=== PATIENT | female | born 1960 | race Caucasian/White ===

== ENCOUNTER 2017-11-21 19:25 | Observation (INO) ==
[2017-11-21] MEDS ORDERED: NORMAL SALINE 1,000 ML IV PRN (19:51)
[2017-11-21] MEDS ORDERED: SENNOSIDES/DOCUSATE SODIUM 1 TAB TABLET PO PRN (19:54)
[2017-11-21] MEDS ORDERED: ALPRAZolam 0.25 MG TABLET PO PRN (19:54)
[2017-11-21] MEDS ORDERED: PRAMIPEXOLE DI-HCL 0.5 MG TABLET PO SCH (21:00)
[2017-11-21] MEDS ORDERED: PROMETHAZINE HCL/CODEINE 60 ML BTL PO PRN (22:31)
[2017-11-21] MEDS: NABUMETONE 500 MG TABLET PO SCH (22:33)
[2017-11-21] MEDS: ACETAMINOPHEN 325 MG TABLET PO PRN (22:34)
[2017-11-21] MEDS ORDERED: rOPINIRole HCL 1 MG TABLET ONE (23:10)
[2017-11-21] MEDS: DULoxetine HCL 30 MG CAPSULE.SA PO SCH (23:27)
[2017-11-21] MEDS: BENZOCAINE/MENTHOL 16 EACH BOX MM PRN (23:28)
[2017-11-21] MEDS: CODEINE PHOSPHATE/GUAIFENESIN 5 ML UDC PO PRN (23:42)
[2017-11-22] MEDS: BENZOCAINE/MENTHOL 16 EACH BOX MM PRN ×3 (05:05→09:02)
[2017-11-22] MEDS: CODEINE PHOSPHATE/GUAIFENESIN 5 ML UDC PO PRN (05:05)
[2017-11-22] MEDS: ACETAMINOPHEN 325 MG TABLET PO PRN ×2 (07:25→13:58)
[2017-11-22] MEDS ORDERED: LEVOTHYROXINE SODIUM 50 MCG TABLET PO SCH (09:00)
[2017-11-22] MEDS ORDERED: ESCITALOPRAM OXALATE 10 MG TAB PO SCH (09:00)
[2017-11-22] MEDS ORDERED: POTASSIUM CHLORIDE 10 MEQ TABLET.SA PO SCH (09:00)
[2017-11-22] MEDS ORDERED: HYDROCHLOROTHIAZIDE 25 MG TABLET PO SCH (09:00)
[2017-11-22] MEDS: DULoxetine HCL 30 MG CAPSULE.SA PO SCH (09:01)
[2017-11-22] MEDS: NABUMETONE 500 MG TABLET PO SCH (09:01)
--- NOTE | 2017-11-22 09:08 | HP ---
Chief Complaint - Chief Complaint Date of Service: 11/21/17 Time of Service: 17:15 Chief Complaint: Cough, body aches, fevers/chills, tailbone pain History of Present Illness: The patient presented to my clinic office today to be evaluated for a cough. She states he symptoms began suddenly on 11/18/2017. She denies any known sick contacts. She complains of progressively worsening dry cough, chills , sweats, body aches. She states she can sometimes feel something rattling in her chest. She also complains of decreased appetite and nausea with occasionally dry heaving. In the office she was checked for strep which was negative. She appeared dry on exam and was tachycardic so [facility] but she did not have any improvement following IVF hydration so she was admitted to observation for further evaluation and management. Medical History (Last Reviewed 11/21/17 @ 19:30 by Ev Horan RN) Abnormal Pap smear of cervix Onset Date: Unknown Anxiety Onset Date: ~01/06/17 Benign essential hypertension Onset Date: ~01/06/17 Chronic constipation Onset Date: ~01/06/17 Dependent edema Onset Date: ~01/06/17 Depression Onset Date: ~01/06/17 Family history of colon cancer Onset Date: ~01/06/17 Fibroid, uterine Onset Date: ~09/26/13 Fibromyalgia Onset Date: ~01/06/17 Hyperlipidemia Onset Date: ~01/06/17 Hypokalemia Onset Date: ~01/06/17 Insomnia Onset Date: ~01/06/17 Lower extremity edema Onset Date: ~01/06/17 Menopausal syndrome Onset Date: ~09/12/13 Obesity (BMI 30-39.9) Onset Date: ~01/06/17 Plantar fasciitis Onset Date: ~01/05/17 Postmenopausal bleeding Onset Date: ~09/26/13 RLS (restless legs syndrome) Onset Date: ~01/06/17 Stress incontinence Onset Date: ~05/26/17 Subclinical hypothyroidism Onset Date: ~01/06/17 Vitamin D deficiency Onset Date: ~05/26/17 Surgical History: Surgical History (Last Reviewed 11/21/17 @ 19:30 by Ev Horan RN) Colonoscopy planned Onset Date: ~2013 H/O elbow surgery Onset Date: ~06/2015 H/O wisdom tooth extraction Onset Date: Unknown Family History: Family History (Last Reviewed 11/21/17 @ 19:30 by Ev Horan RN) Brother Cancer Father Cancer Grandmother Cancer Mother Diabetes Hypertension Arthritis Sister Cancer Social History: Patient Lives/Resources With Spouse Utilized Occupation works at a [employer] Preferred Language Amharic Do you have any denominational or Yes: Yazdanism cultural preference? Smoking Status Never smoker Have you smoked in the past 12 No months Review Of Systems (GEN) - Review of Systems Generalized/Overall Review: Present: Weakness, Chills, Fever, Diaphoresis, Fatigue EENTM: Present: No Symptoms Reported Respiratory: Present: Cough, Shortness of Breath, Wheezing Cardiac: Present: Chest Pain Abdominal: Present: Nausea. Absent: Diarrhea, Melena, Bright blood from rectum Genitourinary: Absent: No Symptoms Reported, Burning, Urgency, Frequency, Hesitancy Musculoskeletal: Present: Joint Pain, Back Pain, Muscle Pain Neurological: Present: Headache, Anxiety Skin: Present: No Symptoms Reported Endocrine: Present: No Symptoms Reported Misc: All systems neg except as marked Allergies/Adverse Reactions: Allergies Allergy/AdvReac Type Severity Reaction Status Date / Time acetaminophen [From Percocet] Allergy Verified 11/21/17 19:31 oxycodone [From Percocet] Allergy Other Verified 11/21/17 19:31 sulindac Allergy RASH Verified 11/21/17 19:31 Home Medications: HOME MEDICATIONS Alprazolam [Xanax] 0.25 mg PO TID PRN 11/21/17 [Last Taken Unknown] Cholecalciferol (Vitamin D3) [Vitamin D3] 5,000 unit PO QAM 11/21/17 [Last Taken 11/20/17 08:00] Duloxetine HCl [Cymbalta] 30 mg PO BID 11/21/17 [Last Taken 11/20/17 21:00] Escitalopram Oxalate [Lexapro] 20 mg PO QAM 11/21/17 [Last Taken 11/20/17 08:00] Hydrochlorothiazide 50 mg PO QAM 11/21/17 [Last Taken 11/20/17 08:00] Levothyroxine Sodium [Synthroid] 50 mcg PO QAM 11/21/17 [Last Taken 11/20/17 08: 00] Magnesium 250 mg PO BID 11/21/17 [Last Taken 11/20/17 21:00] Mv-Mn/Folic Acid/Calcium/Vit K [Women's 50 Plus Daily Formula] 2 tab PO QAM [Last Taken 11/20/17 08:00] Nabumetone [Relafen] 500 mg PO BID 11/21/17 [Last Taken 11/20/17 21:00 500 mg] Potassium Chloride [Klor-Con Sprinkle] 10 meq PO QAM 11/21/17 [Last Taken 08:00 10 mEQ] Pramipexole Di-HCl [Pramipexole Dihydrochloride] 1 mg PO HS 11/21/17 [Last Taken 11/20/17 21:00 1mg] Rosuvastatin Calcium [Crestor] 10 mg PO HS 11/21/17 [Last Taken 11/20/17 21:00 10 mg] Sennosides/Docusate Sodium [Senokot-S] 2 tab PO BID PRN 11/21/17 [Last Taken Unknown] Exam - Exam Vital Signs: Vital Signs - Last Taken Temp 36.2 C 11/22/17 08:16 Pulse 78 11/22/17 08:16 Resp 18 11/22/17 08:16 BP 111/63 11/22/17 08:16 Pulse Ox 96 11/22/17 08:16 Constitutional: Present: Alert, Oriented x3, Cooperative, Acute distress - appears acutely ill and uncomfortable, Middle aged ENT Exam: Present: dry mucous membranes Eye Exam: bilateral eye: normal inspection, PERRL, EOMI Back Exam: Present: no CVA tenderness Respiratory: Present: lungs clear, normal breath sounds, no respiratory distress , no accessory muscle use, other - rhonchi vs. atelectasis Cardiovascular/Chest: Present: tachycardia, edema - trace Abdomen: Present: soft, nontender, nondistended, no rebound tenderness, obese Extremity: Present: lower extremity edema - trace, leg pain - patient c/o severe pain with palpation of her lower extremities Skin Exam: Present: warm/dry, pallor Neurologic: Present: no motor/sensory deficits, alert, oriented x 3, other - anxious Appearance: Present: appropriate appearance, appropriate insight, neat, no memory impairment Eye contact: Present: cooperative, good eye contact, normal speech Thoughts: Present: normal thought pattern, no apparent hallucination Assessment/Plan - Narrative Narrative: Continue IVF hydration overnight. Recheck labs in AM. Hold off on antibiotics for now until a definitive source of infection is identified. Pain medications and cough meds as needed. Blood cultures pending. - Assessment/Plan (1) Cough Problem: Acute (2) Rigors Problem: Acute (3) Pneumonia Problem: Suspected
[2017-11-22] MEDS ORDERED: MORPHINE SULFATE 2 MG/ML DISP.SYRIN IV PRN (09:17)
[2017-11-22] MEDS ORDERED: LORazepam 2 MG/ML DISP.SYRIN IV ONE (09:17)
[2017-11-22 09:29] LABS: Hematocrit 36.9 % (37.0-47.0); Hemoglobin 12.4 gm/dL (12.5-16.0); Mean Cell Volume 91.1 fl (78-100); Mean Corpuscular Hemoglobin 30.6 pg (27-31); Mean Corpuscular Hgb Conc 33.6 g/dl (32-36); Mean Platelet Volume 10.6 fl (8-12.5); Neutrophil # 6.1 K/mm3 (1.3-6.0); Neutrophil % 71.9 % (42-75.0); Platelet Count 211 K/mm3 (150-450); Red Blood Count 4.05 M/mm3 (4.2-5.4); White Blood Count 8.5 K/mm3 (4.0-10.5)
[2017-11-22 10:03] LABS: Anion Gap 11.3 mmol/L (6.8-13.8); BUN/Creatinine Ratio 21.9 (9.0-21.6); Blood Urea Nitrogen 16 mg/dL (3-23); CK Total * 132 U/L (0-259); CKMB 0.7 ng/mL (0.0-9.0); Calcium * 8.6 mg/dL (7.9-10.9); Carbon Dioxide 27.9 mmol/L (24-32.6); Chloride 105 mmol/L (97-106); Estimated Creat Clear 74.3; Glucose * 97 mg/dL (70-110); Potassium 3.2 mmol/L (3.4-4.6); Sodium 141 mmol/L (132-142); Troponin I Less than 0.017 ng/ml (0.00-0.10)
[2017-11-22] MEDS ORDERED: POTASSIUM CHLORIDE 20 MEQ TABLET.SA PO ONE (10:30)
[2017-11-22] MEDS ORDERED: BENZONATATE 100 MG CAPSULE PO PRN (11:59)
[2017-11-22] MEDS ORDERED: LEVOFLOXACIN 750 MG TABLET PO ONE (13:10)
--- NOTE | 2017-11-22 13:16 | DS ---
(1) Pneumonia Problem: Acute Qualifiers: Pneumonia type: due to unspecified organism Laterality: bilateral Lung location: unspecified part of lung Qualified Code(s): J18.9 - Pneumonia, unspecified organism (2) Pneumothorax on right Problem: Acute Description of Stay: ADMISSION DATE: 11/21/2017 DISCHARGE DATE: 11/22/2017 ADMISSION HPI: The patient presented to my clinic office today to be evaluated for a cough. She states he symptoms began suddenly on 11/18/2017. She denies any known sick contacts. She complains of progressively worsening dry cough, chills , sweats, body aches. She states she can sometimes feel something rattling in her chest. She also complains of decreased appetite and nausea with occasionally dry heaving. In the office she was checked for strep which was negative. She appeared dry on exam and was tachycardic so she was [facility] couple [facility]ers of IVFs but she did not have any improvement following IVF hydration so she was admitted to observation for further evaluation and management. HOSPITAL COURSE: The patient was admitted to the hospital for pneumonia. Due to her significant shortness of breath despite an unremarkable CXR, a d-dimer was obtained and was elevated so a chest CT was completed for further evaluation (see below for CT report). The patient was treated with IV antibiotics during her hospital stay and then transitioned to oral antibiotics at discharge. The patient will need a repeat CT scan which we will plan to complete in approximately 6 weeks for follow-up to check for resolution. The patient's hospital course was essentially uneventful and she was discharged home in stable condition. FOLLOW-UP APPOINTMENTS: -PCP, Dr. Muhammad, within 1 week RADIOLOGY REPORTS: PA and lateral CXR on 11/21/2017: No acute cardiopulmonary process detected. CTA chest on 11/22/2017: 1. Negative for acute pulmonary thromboembolism. 2. Negative for acute thoracic aortic finding. 3. Small right-sided pneumothorax. 4. Right lower lobe basal segmental consolidations, one of which appears to be more masslike. Differential diagnosis includes pneumonia versus neoplasm. Non specific right paratracheal and right hilar lymphadenopathy. 5. Tracheal and bronchial wall thickening suggestive of diffuse tracheobronchitis. Mucus plugging of the bilateral lower lobe basal segmental bronchi. Recommendations: Correlate clinically for pneumonia. Recommend follow-up chest CT in 3 months. Procedures Performed: none Results and Findings: Lab Pending Results 11/22/17 09:25: WBC 8.5, RBC 4.05 L, Hgb 12.4 L, Hct 36.9 L, MCV 91.1, MCH 30.6 , MCHC 33.6, RDW 13.0, Plt Count 211, MPV 10.6, Immature Gran % (Auto) 0.10, Immature Gran # (Auto) 0.01, Neutrophils % 71.9, Lymphocytes % 13.4 L, Monocytes % 10.1 H, Eosinophils % 4.0 H, Basophils % 0.5, Nucleated RBC % 0.0, Neutrophils # 6.1 H, Lymphocytes # 1.14 L, Monocytes # 0.9, Eosinophils # 0.3, Absolute Basophils 0.0 11/22/17 09:25: Sodium 141, Plasma Sodium 141, Potassium 3.2 L, Chloride 105, Carbon Dioxide 27.9, Anion Gap 11.3, BUN 16, Creatinine 0.73, Est GFR (Non-Af Amer) 88 D, BUN/Creatinine Ratio 21.9 H, Random Glucose 97, Calcium 8.6, Creatine Kinase 132, CK-MB (CK-2) 0.7, CK-MB (CK-2) Rel Index 0.5, Troponin I Less than 0.017 11/22/17 09:25: D-Dimer 0.63 H Discharge Location: Home Disposition: Home self-care Condition: Stable Discharge Activity: Activity as tolerated Discharge Diet: General/regular food Referrals: Shaye Muhammad DO [Primary Care Provider] - Problem Oriented Discharge Instructions to Patient/Family: Pneumothorax, Community-Acquired Pneumonia, Adult, [id number] Additional Patient Instructions (free text): Follow up with Dr. Muhammad on 11-28-17 at 3:15pm. Prescriptions (Any new or edited meds): Benzonatate [Tessalon] 200 mg PO TID PRN #50 cap PRN Reason: Cough Complete Home Medications List: Complete Home Medication List: Alprazolam [Xanax] 0.25 mg PO TID PRN 11/21/17 Cholecalciferol (Vitamin D3) [Vitamin D3] 5,000 unit PO QAM 11/21/17 Duloxetine HCl [Cymbalta] 30 mg PO BID 11/21/17 Escitalopram Oxalate [Lexapro] 20 mg PO QAM 11/21/17 Hydrochlorothiazide 50 mg PO QAM 11/21/17 Levothyroxine Sodium [Synthroid] 50 mcg PO QAM 11/21/17 Magnesium 250 mg PO BID 11/21/17 Mv-Mn/Folic Acid/Calcium/Vit K [Women's 50 Plus Daily Formula] 2 tab PO QA Potassium Chloride [Klor-Con Sprinkle] 10 meq [facility] 11/21/17 Pramipexole Di-HCl [Pramipexole Dihydrochloride] 1 mg PO 11/21/17 Rosuvastatin Calcium [Crestor] 10 mg PO 11/21/17 Benzonatate [Tessalon] 200 mg PO TID PRN #50 cap 11/22/17 promethazine 6.25 mg-codeine 10 mg/5 mL syrup 5 ml PO Q4H PRN #473 ml 11/28/17 Acetaminophen with Codeine [Acetaminophen-Cod #3 Tablet] 1 - 2 ea PO QID PRN # 15 tab 12/05/17 Azithromycin 250 mg PO DAILY #4 tab 12/05/17 nabumetone 500 mg tablet 500 mg PO BID #60 tab 12/09/17
[2017-11-22 16:34] VITALS: BP 114/68
[2017-11-22] MEDS ORDERED: rOPINIRole HCL 1 MG TABLET PO ONE (22:30)
== END 2017-11-22 15:45 | disposition home or self-care (01) ==
LOC: MS 19:25 → INTOOBSV 19:25
PROVIDERS: ADMIT Internal Medicine; ATTEND Internal Medicine
CPT/HCPCS: 36415; 71020; 71046; 71275; 80048; 80076; 82550; 82553; 84145; 84484; 85025; 85379; 85652; 86140; 86141; 87040; 93005; 96361; 96374; G0378